=== PATIENT | male | born 1995 | race Caucasian/White ===

== ENCOUNTER 2019-03-09 17:17 | Emergency (ER) | payer OTHER ==
[~2019-03-09] VITALS: Ht 177.8 cm; Wt 94.3 kg
[2019-03-09 17:31] VITALS: BP 134/89
--- NOTE | 2019-03-09 17:36 | NUR ---
PT TO [facility] BOWLES WITH STEADY GAIT
--- NOTE | 2019-03-09 17:50 | NUR ---
PT AMBULATED TO ER BED 11
--- NOTE | 2019-03-09 18:25 | NUR ---
Note undone in EDM - 03/09/19 at 1825 by [email or web address] EPIGASTRIC PAIN AND L SIDE OF AB PAIN- WORSE WITH EATING X 1 WEEK CHILLS AND DIARRHEA X 4 DAYSABD SOFT. PATIENT STATES PAIN OF 7/10 AT THIS TIME. PATIENT POSITIONED FOR COMFORT; HOB ELEVATED; BEDRAILS UP X1; BED DOWN. ER MADE AWARE OF PT STATUS.
--- NOTE | 2019-03-09 18:25 | NUR ---
24/M BIB SELF C/O EPIGASTRIC PAIN AND L SIDE OF AB PAIN- WORSE WITH EATING X 1 WEEK CHILLS AND DIARRHEA X 4 DAYSABD SOFT. PATIENT STATES PAIN OF 7/10 AT THIS TIME. PATIENT POSITIONED FOR COMFORT; HOB ELEVATED; BEDRAILS UP X1; BED DOWN. ER MD MADE AWARE OF PT STATUS.
--- NOTE | 2019-03-09 19:17 | NUR ---
STREP SWAB COLLECTED.
[2019-03-09 19:21] LABS: BASOPHILS % (AUTO) 0.2 % (0.0-2.0); EOSINOPHILS % (AUTO) 0.4 % (0.0-4.0); HEMATOCRIT 44.9 % (36-52); HEMOGLOBIN 15.1 g/dL (12.0-18.0); LYMPHOCYTES # (AUTO) 1.6 K/uL (2.0-11.5); LYMPHOCYTES % (AUTO) 15.8 % (20.5-51.1); MEAN CORPUSCULAR HEMOGLOBIN 30 pg (27-31); MEAN CORPUSCULAR HGB CONC 34 g/dL (33-37); MEAN CORPUSCULAR VOLUME 88.5 fL (80-94); MONOCYTES # (AUTO) 1.1 K/uL (0.8-1.0); MONOCYTES % (AUTO) 10.4 % (1.7-9.3); NEUTROPHILS # (AUTO) 7.6 K/uL (1.8-7.7); NEUTROPHILS % (AUTO) 73.2 % (42.2-75.2); PLATELET COUNT (AUTO) 172 K/uL (140-450); RED BLOOD CELL COUNT(AUTO) 5.08 MIL/uL (4.20-6.10); RED CELL DISTRIBUTION WIDTH 12.4 % (11.6-13.7); WHITE BLOOD COUNT (AUTO) 10.4 K/uL (4.8-10.8)
[2019-03-09 19:22] LABS: APPEARANCE,URINE CLEAR (CLEAR); BILIRUBIN,URINE NEGATIVE (NEGATIVE); BLOOD, URINE TRACE-L (NEGATIVE); COLOR,URINE YELLOW (YELLOW); LEUKOCYTE ESTERASE ,URINE NEGATIVE (NEGATIVE); NITRITE, URINE NEGATIVE (NEGATIVE); PH,URINE 6.5 (5.0-9.0); UGLUCOSE NEGATIVE (NEGATIVE)
[2019-03-09] MEDS ORDERED: KETOROLAC 30 MG/ML VIAL IM ONE (19:35)
[2019-03-09 19:44] LABS: ANION GAP 14.6 (8-16); CREATININE 0.9 mg/dL (0.7-1.3); POTASSIUM 3.6 mmol/L (3.5-5.1); TOTAL BILIRUBIN 1.2 mg/dL (0.0-1.0)
[2019-03-09 19:44] LABS: RBC,URINE 0-5 /HPF (0-5); WBC,URINE NONE SEEN /HPF (0-5)
[2019-03-09 20:23] VITALS: BP 126/82
--- NOTE | 2019-03-09 20:23 | NUR ---
Patient discharged with v/s stable. Written and verbal after care instructions given and explained. Patient alert, oriented and verbalized understanding of instructions. Ambulatory with steady gait. All questions addressed prior to discharge. ID band removed. Patient advised to follow up with PMD. Rx of OMEPRAZOLE given. Patient educated on indication of medication including possible reaction and side effects. Opportunity to ask questions provided and answered.
== END 2019-03-09 20:23 | disposition home or self-care (01) ==
LOC: MED 17:17
DX: K29.70 Gastritis, unspecified, without bleeding (principal); J02.8 Acute pharyngitis due to other specified organisms; Z88.5 Allergy status to narcotic agent
CPT/HCPCS: 36415; 74018; 80053; 81001; 83690; 85025; 87081; 96372; 99284; J1885; Q0092